=== PATIENT | male | born 1975 | race Caucasian/White ===

== ENCOUNTER 2024-03-03 07:07 | Day surgery (SDC) | payer OTHER, SELFPAY ==
[2024-03-03] VITALS (27 sets, daily range): BP systolic 81–142; BP diastolic 41–108; PULSE 83–131; RESP 14–20; TEMP 36.3–38.1; O2SAT 94–100; BMI 33.9
[2024-03-03] MEDS: MIDAZOLAM (PO) 5 MG/2.5 ML SYRUP 15 MG PO (07:30)
--- NOTE | 2024-03-03 08:26 | SUR.PREOP ---
Pt is accompanied by Mom-Jovita, sister, Kayla (worker in assisted), and Nichole costume design teacher. Per Mom's request and after anesthesia consult, [facility] tolerated without difficulty. Pt was assisted x4 nursing staff onto cart in [facility]. Preop Questionnaire answered by Jovita. OR staff to perform nasal swab.
--- NOTE | 2024-03-03 08:30 | XR_ITS ---
Patient: GUILHERME DUFFY Facility:?[facility] Patient ID:?[id number] Site Patient ID:?[id number]. Site :?1975 Study:?XRay-Hip Left w/ c-arm-03/03/2024 11:38:21 AM Ordering Physician:?Praveen Julio Final Report: Indication: Hip replacement surgery Technique: AP hip fluoroscopic images. Fluoroscopy time 84.1 seconds. Findings/Impression: Hardware from a left total hip arthroplasty is in satisfactory position. Note that the images are mislabeled ?right?. Dictated by Myke Prieto MD @ 03/04/2024 1:23:34 PM Signed by:?Myke Prieto MD @03/04/2024 1:23:34 PM (Electronic Signature)
[2024-03-03] MEDS: LACTATED RINGERS 1000 ML 1,000 ML 100 ML IV ×3 (09:05→11:01)
[2024-03-03] MEDS: CEFAZOLIN 1 GM inj 3 GM IVP (09:20)
[2024-03-03] MEDS: TRANEXAMIC ACID 100 MG/ML INJ 1000 MG IV (09:20)
--- NOTE | 2024-03-03 10:39 | P.NB_ITS ---
Nerve Block Nerve Block Time Seen by Provider: 08:30 Date Seen: 03/03/24 Type of block requested by surgeon for post-operative analgesia: NANCY/LFCN Side: left Time out performed: Yes Verification of patient name: Yes Verification of date of : Yes Site marking: site marked Name of person performing procedure: frank Continuous monitoring Was continuous monitoring of O2 sat, B/P, service order clerk, recorded every 15 minutes?: Yes Procedure Checklist: sterile prep, needles and gloves Ultrasound guided. Images saved: Yes Medications given in 5ml increments after negative aspiration: Ropivicaine %: 0.5 mL: 30 Needle gauge: 20 Decadron (mg): 10 Precedex (mcg): 25 Patient tolerated procedure well: Yes Block Charges Block Charge (with Pro Fee): Other Periph Nerve Block Use of Ultrasound Machine for Block: Yes- US Guidance/pain block
--- NOTE | 2024-03-03 11:35 | XR_ITS ---
Patient: GUILHERME DUFFY Facility:?[facility] Patient ID:?[id number] Site Patient ID:?[id number]. Site :?1975 Study:?XRay-Hip Left Post op-03/03/2024 1:01:47 PM Ordering Physician:?Praveen Julio Final Report: INDICATION: Postop left SANDRA. TECHNIQUE: AP pelvis and lateral left hip. FINDINGS: There is a left SANDRA. Components appear well seated. Adjacent postop soft tissue air. Also noted is a right SANDRA. Dictated by Bart Miranda MD @ 03/04/2024 9:42:33 AM Signed by:?Bart Miranda MD @03/04/2024 9:42:33 AM (Electronic Signature)
--- NOTE | 2024-03-03 11:37 | PM.ORPRC ---
Procedure Note Date of procedure: 03/03/24 Procedure: PREOPERATIVE DIAGNOSIS: Left hip osteoarthritis POSTOPERATIVE DIAGNOSIS: Left hip osteoarthritis NAME OF OPERATION: Left total hip arthroplasty SURGEON: Praveen Julio MD BEVEL POLISHER: Randi Caldwell PA-C, NI Dan IMPLANTS: 1. [employer] [place] # 54 sector ingrowth cup 2. 36 x 54 +4 neutral polyethylene 3. Actis # 3 high offset collared ingrowth stem 4. 36 + 5 ceramic femoral head ANESTHESIA: General ESTIMATED BLOOD LOSS: 1000 cc COMPLICATIONS: None SPECIMENS: None DRAINS: None PREOPERATIVE ANTIBIOTICS: Ancef 2 grams INDICATIONS: The patient is a 48-year-old with a longstanding history of severe, unrelenting left hip pain secondary to end-stage left hip osteoarthritis. Despite appropriate nonoperative management, including activity modification, use of an assist device, anti-inflammatories, [id number] pain medication, physical therapy and injections, they continue to have pain and disability. Operative intervention was offered. The risks, benefits and expected outcomes were discussed in detail. These included but were not limited to: Infection, bleeding, injury to blood vessel or nerve, venous thromboembolism. All questions were answered to their satisfaction. Use of an assistant director of admissions was necessary throughout the case for patient positioning and safety, soft tissue retraction and closure. A modifier 22 should be added to this case. The patient's weight of 110 kg with a BMI of 34 made the exposure difficult. Additionally, the femoral anatomy was unique with significant metaphyseal diaphyseal mismatch which made getting fixation of the femoral component a challenge. These factors more than doubled the time typically required to complete this case. PROCEDURE: The patient was placed supine on the [place] table. General anesthesia was administered. The assistant director of admissions made sure the patient was properly positioned. The left hip was prepped and draped in the usual sterile fashion. The image intensifier was brought in for a perfect AP pelvis and a perfect double tear drop AP view of each hip which were used for intraoperative templating with our fluoroscopic guide. An oblique incision was made 3 cm distal and 3 cm lateral to the anterior superior iliac spine. The assistant director of admissions retracted the soft tissues to protect them. Subcutaneous dissection was taken with electrocautery to the superficial fascia. The fascia was divided in line with the incision. Blunt dissection was carried medially to the tensor fascia jayesh and sartorius interval. Deep dissection was carried with electrocautery. The circumflex vessels were cauterized and divided. The capsule was exposed and then divided in a T-fashion, tagged with #1 Ethibond sutures. Retractors were placed in the joint, held by the assistant director of admissions. The corkscrew was placed in the femoral head. The neck cut was made in the subcapital region. We made a second neck cut more distal. The napkin ring of bone was removed. The femoral head was removed intact. Acetabular retractors were placed, held by the assistant director of admissions. The labrum was sharply debrided. The capsule was released. The 43 mm reamer was used to the true medial wall. We then enlarged in 2 mm increments using the image intensifier for our reamer placement. We impacted the cup which had excellent purchase. We placed the polyethylene. Attention was then turned to the proximal femur. The limb was placed in 140 degrees of external rotation, maximum extension and adduction. A significant amount of time was spent releasing the capsule to allow us to deliver the femur into the wound and complete the femoral side safely. Retractors were held by the assistant director of admissions throughout the femoral preparation. The gill box tender and canal finder were used. Broaches were used to a stable size. The calcar reamer was used. Trial components were placed. The hip was reduced and was found to be stable with appropriate soft tissue tension. Length and offset had been nicely restored using the image intensifier and our fluoroscopic guide. Trial components were removed. The stem was impacted. We placed the femoral head. Again, the hip was reduced and was found to be stable with appropriate soft tissue tension. Length and offset had been nicely restored. The assistant director of admissions did a three minute dilute Betadine solution soak. The assistant director of admissions irrigated the wound with 3 liters of normal saline via pulse lavage. The assistant director of admissions repaired the anterior capsule with a #1 Vicryl and our previously placed Ethibond sutures. The assistant director of admissions closed the fascia over the tensor fascia jayesh with a #1 PDO Stratafix, subcutaneous tissues with 2-0 Vicryl, skin with a running 3-0 Stratafix and glue. A dry dressing was applied by the assistant director of admissions. Sponge and needle counts were correct x 2. The patient tolerated the procedure well; there were no apparent complications. They were awakened and extubated in the operating room, sent to the Post-Anesthesia Care Unit in satisfactory condition. PLAN: 1. The patient will be mobilized with physical therapy, weight-bearing as tolerates 2. Xarelto x 5 days then aspirin x 30 days will be used for DVT prophylaxis 3. The patient will be discharged once medically appropriate
--- NOTE | 2024-03-03 12:40 | W.ANESCHARGE ---
Anesthesia Charges Start Date/Time Anesthesia Start Date: 03/03/24 Anesthesia Start Time: 08:55 Stop Date/Time Anesthesia Stop Date: 03/03/24 Anesthesia Stop Time: 12:38
[2024-03-03 12:44] LABS: Hemoglobin* 10.1 gm/dL (13.5-17.5)
--- NOTE | 2024-03-03 13:10 | SUR.PHASEI ---
consulted with CANDELARIO Tran regarding patient's bp, stated to run fluids and no medication intervention needed if map is above 60mmHg
--- NOTE | 2024-03-03 13:50 | P.IMCN_ITS ---
Date of Consult Patient: Other Consult date: 03/03/24 Requesting Physician: Orthopedics Primary Care Provider: Not a Local Provider Consult Narrative Narrative: Ty Maldonado is a 48 year old male seen in consultation for management of medical problems following hip surgery. He underwent left total hip arthroplasty performed by Dr. Julio today. Procedure was associated with 1000 mL blood loss and postop hypotension. He received 3 L of fluid postoperatively for his hypotension. His hemoglobin was 10.1 postoperatively. He has also been chilled and being warmed with a Kianna Hugger blanket. He currently reports no concerns other than feeling cold. He is having shaking chills. He denies having any pain. Preop evaluation did not identify any significant medical concerns. Review of Systems Narrative: No recent illness or injury. No new health concerns. [facility] Medical History (Updated 03/03/24 @ 14:29 by Alberto Guillen MD) Delay of cognitive development ?F81.9 - Developmental disorder of scholastic skills, unspecified (ICD-10) Congenital deafness ?H90.5 - Unspecified sensorineural hearing loss (ICD-10) Body mass index (BMI) of 38.0 to 38.9 in adult ?Z68.38 - Body mass index [BMI] 38.0-38.9, adult (ICD-10) Anxiety about health ?R45.89 - Other symptoms and signs involving emotional state (ICD-10) Osteoarthritis of left hip ?M16.12 - Unilateral primary osteoarthritis, left hip (ICD-10) Surgical History (Updated 03/03/24 @ 14:28 by Alberto Guillen MD) S/P total left hip arthroplasty ?Z96.642 - Presence of left artificial hip joint (ICD-10) History of cataract extraction ?Z98.49 - Cataract extraction status, unspecified eye (ICD-10) History of total right hip arthroplasty (03/07/21) ?Z96.641 - Presence of right artificial hip joint (ICD-10) Social History (Updated 03/03/24 @ 14:23 by Alberto Guillen MD) Narrative: He lives at [facility]. Communicates with the Singaporean sign language. He does not smoke. He does not drink alcohol. Problems where you live: no known problems Smoking Status: Never smoker Do you use any of these nicotine containing products: None Second hand tobacco smoke exposure: No How often do you have a drink containing alcohol: never AUDIT-C Alcohol total score: 0 Non-prescribed substance use: denies use Caffeine: No Meds Home Medications and Allergies Home Medications Medication Instructions Recorded Confirmed Type acetaminophen 500 mg tablet 500 mg PO Q6H PRN 03/03/24 03/03/24 History ibuprofen 200 mg tablet (Advil) 400 mg PO Q6H PRN 03/03/24 03/03/24 History Allergies Allergy/AdvReac Type Severity Reaction Status Date / Time No Known Drug Allergies Allergy Unverified 11/11/23 13:11 Exam Narrative: Exam Narrative: Appears chilled with shivering. He is otherwise alert. Communicating well through sign language. Eyes normal. Oropharynx shows small airway. Neck is supple without mass or adenopathy. Respirations are clear to auscultation. Cardiovascular: S1, S2, regular rate and rhythm. Abdomen: Bowel sounds active. Abdomen is soft without tenderness or mass. Left hip incision is clean and dry without erythema or bruising or apparent drainage on the dressing. Distally he has trace edema. Feet are somewhat cool to touch. Intact pedal pulses. Moves right lower extremity well. Less movement in left foot and ankle though no obvious motor deficit Const: Vital Signs, click to edit/add: Vital Signs - 24 hr 03/03/24 08:25 03/03/24 12:35 03/03/24 12:40 Temperature 97.6 F Pulse Rate 108 H 85 84 Respiratory Rate 16 14 14 Blood Pressure 122/75 97/59 L 98/60 Pulse Oximetry 99 94 95 Oxygen Delivery Me thod Room Air Room Air Room Air 03/03/24 12:45 03/03/24 12:50 03/03/24 12:55 Temperature Pulse Rate 85 83 84 Respiratory Rate 16 16 16 Blood Pressure 101/55 L 93/58 L 94/71 Pulse Oximetry 97 95 97 Oxygen Delivery Me thod Room Air Room Air Room Air 03/03/24 13:00 03/03/24 13:05 03/03/24 13:10 Temperature Pulse Rate 83 87 84 Respiratory Rate 16 16 16 Blood Pressure 89/41 L 99/64 98/61 Pulse Oximetry 95 97 96 Oxygen Delivery Me thod Room Air Room Air Room Air 03/03/24 13:15 03/03/24 13:21 03/03/24 13:25 Temperature 97.4 F L 97.6 F Pulse Rate 96 95 94 Respiratory Rate 16 16 16 Blood Pressure 104/58 L 113/71 99/61 Pulse Oximetry 98 97 98 Oxygen Delivery Me thod Room Air Room Air Room Air Documenting provider has reviewed patient's vital signs: yes Labs Labs: Short CBC 03/03/24 Range/Units 12:23 Hgb 10.1 L (13.5-17.5) gm/dL Assessment and Plan Assessment and plan (1) S/P total left hip arthroplasty: Problem comment: Dr. Julio. Postop hypotension due to excess blood-loss Status: Acute (2) Body mass index (BMI) of 38.0 to 38.9 in adult: Status: Acute (3) Anxiety about health: Problem comment: Had significant anxiety after right hip surgery 3 years ago Status: Acute (4) Congenital deafness: Problem comment: media relations specialist Status: Acute (5) Hypothermia following anesthesia: Problem comment: Kianna Hugger Status: Acute (6) Acute postoperative anemia due to greater than expected blood loss: Problem comment: Postop hemoglobin 10.1. Continue to monitor. Status: Acute (7) Hypotension: Problem comment: Postop hypotension likely due to blood loss. Responding fluid resuscitation Status: Acute Plan Patient is admitted for postoperative management after left total hip arthroplasty. Responding well to fluid resuscitation for operative blood loss and hypotension. Responding well to warming with Kianna Hugger blanket. Anticipate for routine postoperative care. Attention to anxiety patient may have about hospital care. Total Time Spent Total Time Spent: Total time spent today is 50 minutes, 30 minutes in coordination of care discussing with patient, mother and other providers ongoing management of blood loss hypotension and hypothermia.
[2024-03-03] MEDS: 0.9 % SODIUM CHLORIDE 1000 ml 1,000 ML 500 ML IV (14:15)
--- NOTE | 2024-03-03 15:29 | PC.NURSE ---
Nursing Care Hours: [id number] Pt arrived from PACU alert and oriented, communicating with parts interpreter for ALS. No c/o pain or nausea. Report from PACU nurse that EBL about 1000ml, BP hypotensive and pt cold in recovery. On M/S, started bearhugger for extreme shivers, started bolus infusion of warmed sodium chloride per hospitalist. Initial BP inaccurate d/t artifact. Once pt calmed, BP reading 98/63, pt reported feeling dizzy and lightheaded, so HOB lowered to supine. Capillary refill initially was >3 seconds but once warmed up and infusions running, decreased to 3 seconds. Bandage CDI. Reports feeling loan underwriter touch legs and is able to pump feet. Temporal temp increased from 97.5 to 100.6, so bearhugger turned off. Pt tolerating ice chips. Pt was asking about going home with mom and when loan underwriter explained that it would be tomorrow, pt began crying, but easily consoled. Mom in room, clipped pt toenails of right foot. Pt mom reported she will follow up with corset maker for L foot d/t toenails too long and are curling over to plantar side of toe and digging into skin. No open areas noted.
[2024-03-03] MEDS: LACTATED RINGERS 1000 ML 1,000 ML 75 ML IV ×2 (16:03→23:38)
[2024-03-03] MEDS: ACETAMINOPHEN 500 MG TABLET 1000 MG PO (16:56)
[2024-03-03] MEDS: CEFAZOLIN 2 GM in 0.9 % SODIUM CHLORIDE Mini-bag 100 ML IVPB (16:57)
[2024-03-03] MEDS: LACTATED RINGERS 1000 ML 1,000 ML IV (17:49)
[2024-03-03] MEDS: OXYCODONE 5 MG TABLET PO (19:22)
--- NOTE | 2024-03-03 20:16 | P.IMPN_ITS ---
Progress Note: A&P Assessment and plan (1) Hypotension: Problem details: Postop hypotension likely due to blood loss. Responds to fluid resuscitation. Has gotten over 3 liters and is tachycardic and mildly hypotensive when boluses finish. Will check Hgb. Will give versed for sedation due to anxiety, refusal (patient is not his own decision maker and his mother/POA would like us to get the Hgb and is agreeable to using versed for blood draw). Type and cross is pending. Status: Acute (2) Acute postoperative anemia due to greater than expected blood loss: Problem details: Postop hemoglobin 10.1. Continue to monitor. Status: Acute (3) Hypothermia following anesthesia: Problem details: Kianna Chilel Status: Resolved (4) S/P total left hip arthroplasty: Problem details: Dr. Julio. Postop hypotension due to excess blood-loss Status: Acute (5) Osteoarthritis of left hip: Problem details: [place] grade 3 left hip osteoarthritis Status: Acute (6) Anxiety about health: Problem details: Had significant anxiety after right hip surgery 3 years ago Status: Acute (7) Delay of cognitive development: Status: Acute (8) Congenital deafness: Problem details: resources representative Status: Acute Time Spent With Patient Total time spent: Today I spent 35 minutes rounding on the patient. Greater than 50% included discussing care with the team, reviewing data, updating and managing the care plan. Subjective Time Seen by Provider: 19:45 Date Seen: 03/03/24 Interval history: Ty is a 48-year-old male with developmental delay who underwent an elective left total hip arthroplasty today by Dr. Julio and it was noted that there was a 1000 mL blood loss. Postoperatively he has had adequate urine output, but heart rate has been in the 110s to 120s and blood pressures are soft. Despite getting several IV fluid boluses, his heart rate and soft blood pressures have not changed. I ordered a hemoglobin however the patient is refusing any needles. His mother, Jovita, is in the room with him and tells me that this has been problem his whole life and he has to be sedated with Versed in order for a blood draw to be done. She notes that they gave him oral Versed prior to getting an IV for surgery this morning. We discussed either continuing giving fluid boluses without obtaining a hemoglobin verses giving Versed and doing a blood draw to obtain the hemoglobin. I also discussed blood transfusion with her. She wanted us to get the hemoglobin and was agreeable with giving Versed to do so. She is agreeable to blood transfusion if that should be necessary as well. Exam Narrative: Exam Narrative: General: No acute distress. Awake, alert, oriented. Smiling, talkative and interactive. Developmental delay noted. Mild pallor. No jaundice. Oropharynx: Clear. Mucous membranes moist. Cardiovascular: Tachycardic, regular. No murmurs, gallops, or rubs. Respiratory: Clear to auscultation bilaterally. No wheezes or crackles. Abdomen: Bowel sounds present. Soft, nondistended, nontender. Extremities: Left hip bandage is clean, dry, intact. There is no ecchymosis. He would not let me touch the area. There is candidiasis of the left groin. No pedal edema. Const: Vital Signs, click to edit/add: Vital Signs - 24 hr 03/03/24 08:25 03/03/24 12:35 03/03/24 12:40 Temperature 97.6 F Pulse Rate 108 H 85 84 Respiratory Rate 16 14 14 Blood Pressure 122/75 97/59 L 98/60 Pulse Oximetry 99 94 95 Oxygen Delivery Me thod Room Air Room Air Room Air 03/03/24 12:45 03/03/24 12:50 03/03/24 12:55 Temperature Pulse Rate 85 83 84 Respiratory Rate 16 16 16 Blood Pressure 101/55 L 93/58 L 94/71 Pulse Oximetry 97 95 97 Oxygen Delivery Me thod Room Air Room Air Room Air 03/03/24 13:00 03/03/24 13:05 03/03/24 13:10 Temperature Pulse Rate 83 87 84 Respiratory Rate 16 16 16 Blood Pressure 89/41 L 99/64 98/61 Pulse Oximetry 95 97 96 Oxygen Delivery Me thod Room Air Room Air Room Air 03/03/24 13:15 03/03/24 13:21 03/03/24 13:25 Temperature 97.4 F L 97.6 F Pulse Rate 96 95 94 Respiratory Rate 16 16 16 Blood Pressure 104/58 L 113/71 99/61 Pulse Oximetry 98 97 98 Oxygen Delivery Me thod Room Air Room Air Room Air 03/03/24 13:45 03/03/24 14:00 03/03/24 14:04 Temperature 98.9 F 97.5 F L Pulse Rate 98 104 H 109 H Respiratory Rate 16 16 Blood Pressure 140/101 H 142/108 H Pulse Oximetry 99 98 98 Oxygen Delivery Tx thod Room Air Room Air Room Air 03/03/24 14:30 03/03/24 15:30 03/03/24 16:29 Temperature 100.6 F H 99.1 F 99.6 F Pulse Rate 90 113 H 117 H Respiratory Rate 16 20 18 Blood Pressure 98/63 95/56 L 112/99 H Pulse Oximetry 96 98 100 Oxygen Delivery Tx thod Room Air Room Air Room Air 03/03/24 17:30 03/03/24 18:30 Temperature 99.4 F 99.0 F Pulse Rate 123 H 131 H Respiratory Rate 20 20 Blood Pressure 106/56 L 97/69 Pulse Oximetry 96 96 Oxygen Delivery Tx thod Room Air Room Air Labs Labs: Laboratory Results - last 24 hr 03/03/24 03/03/24 09:02 12:23 Hgb 10.1 L Blood Type B Positive Antibody Screen NEGATIVE
[2024-03-03] MEDS: SENNOSIDES 1 TAB TABLET 2 TAB PO (20:45)
[2024-03-03] MEDS: MIDAZOLAM HCL 1 MG/ML inj 2 MG IVP ×2 (21:35→22:37)
[2024-03-03] MEDS: LACTATED RINGERS 500 ML 500 ML IV (22:36)
[2024-03-03] MEDS: KETAMINE HCL 100 MG/ML inj 25 MG IVP (23:36)
[2024-03-03] MEDS: KETAMINE HCL 100 MG/ML inj 12.5 MG IVP (23:37)
[2024-03-03 23:38] LABS: Hemoglobin* 8.7 gm/dL (13.5-17.5)
[2024-03-04] VITALS (9 sets, daily range): BP systolic 91–122; BP diastolic 37–67; PULSE 99–120; RESP 18–22; TEMP 37.5–37.7; O2SAT 96–97
[2024-03-04] MEDS: ACETAMINOPHEN 500 MG TABLET 1000 MG PO ×2 (00:38→11:27)
[2024-03-04] MEDS: CEFAZOLIN 2 GM in 0.9 % SODIUM CHLORIDE Mini-bag 100 ML IVPB (00:39)
--- NOTE | 2024-03-04 01:10 | PC.NURSE ---
End of Shift: Patient pleasant and cooperative. records clerk used in person and on Ipad. Dressing to left hip C/D/I. CMS intact. C/o pain in left hip and PRN Oxycodone given x1. Tolerating regular diet with no nausea.Using urianl. BP 80-110/50-60s. Heart rate increased to 120-130. Pt c/o some lightheadedness. Updated MD. EKG and bolus given as ordered. Order for lab to draw hemoglobin. Education on lab draw provided to patient with Ipad tenter frame back tender and with mother present. Patient refused. Several attempts made to educate on importance and patient continued to refuse. Updated MD and patient's mother, Midazolam ordered. Attempted again to draw hemoglobin after administration and patient refused. Second dose of Midazolam given as ordered and still unable to complete blood draw. MD aware.
--- NOTE | 2024-03-04 06:48 | PC.NURSE ---
End of shift note: pt calm and cooperative with cares. Lab draw obtained post administration of versed and ketamine. Hgb down from 10.1 to 8.7. MD updated. 1unit PRBC administered without complication. LR @75ml to left forearm. pt uses call light appropriately. pt has not been post op d/t increased agitation and medication use. active ice to left hip. dressing c/d/i. ipad furrier apprentice used.
--- NOTE | 2024-03-04 08:34 | PM.ORPN ---
Subjective Subjective Time Seen by Provider: 07:15 Date Seen: 03/04/24 Principal diagnosis: Status post left hip replacement Interval history: Ty is comfortable this morning. He is looking forward to going home. He had a unit of blood postoperatively. He states he is feeling good and hungry for breakfast. Ortho Exam Narrative Exam Narrative: Alert and oriented x3. Patient is in no acute distress. Converses without labored breathing. Hearing is grossly intact. Ambulates with a walker. Examination of the left hip shows the dressing is intact. No erythema or warmth or sign of infection. Mild soft tissue edema. Bilateral calves are soft and nontender. CMS intact left lower extremity. Const Vital Signs, click to edit/add: Vital Signs - 24 hr 03/03/24 12:35 03/03/24 12:40 03/03/24 12:45 Temperature 97.6 F Pulse Rate 85 84 85 Pulse Rate [Left Pulse Oximeter] Respiratory Rate 14 14 16 Blood Pressure 97/59 L 98/60 101/55 L Blood Pressure [Right Arm] Pulse Oximetry 94 95 97 Oxygen Delivery Method Room Air Room Air Room Air 03/03/24 12:50 03/03/24 12:55 03/03/24 13:00 Temperature Pulse Rate 83 84 83 Pulse Rate [Left Pulse Oximeter] Respiratory Rate 16 16 16 Blood Pressure 93/58 L 94/71 89/41 L Blood Pressure [Right Arm] Pulse Oximetry 95 97 95 Oxygen Delivery Method Room Air Room Air Room Air 03/03/24 13:05 03/03/24 13:10 03/03/24 13:15 Temperature 97.4 F L Pulse Rate 87 84 96 Pulse Rate [Left Pulse Oximeter] Respiratory Rate 16 16 16 Blood Pressure 99/64 98/61 104/58 L Blood Pressure [Right Arm] Pulse Oximetry 97 96 98 Oxygen Delivery Method Room Air Room Air Room Air 03/03/24 13:21 03/03/24 13:25 03/03/24 13:45 Temperature 97.6 F 98.9 F Pulse Rate 95 94 98 Pulse Rate [Left Pulse Oximeter] Respiratory Rate 16 16 16 Blood Pressure 113/71 99/61 140/101 H Blood Pressure [Right Arm] Pulse Oximetry 97 98 99 Oxygen Delivery Method Room Air Room Air Room Air 03/03/24 14:00 03/03/24 14:04 04/02/24 14:30 Temperature 97.5 F L 100.6 F H Pulse Rate 104 H 109 H 90 Pulse Rate [Left Pulse Oximeter] Respiratory Rate 16 16 Blood Pressure 142/108 H 98/63 Blood Pressure [Right Arm] Pulse Oximetry 98 98 96 Oxygen Delivery Method Room Air Room Air Room Air 03/03/24 15:30 03/03/24 16:29 03/03/24 17:30 Temperature 99.1 F 99.6 F 99.4 F Pulse Rate 113 H 117 H 123 H Pulse Rate [Left Pulse Oximeter] Respiratory Rate 20 18 20 Blood Pressure 95/56 L 112/99 H 106/56 L Blood Pressure [Right Arm] Pulse Oximetry 98 100 96 Oxygen Delivery Method Room Air Room Air Room Air 03/03/24 18:30 03/03/24 19:30 03/03/24 21:00 Temperature 99.0 F 98.9 F Pulse Rate 131 H 126 H Pulse Rate [Left Pulse Oximeter] 123 H Respiratory Rate 20 18 Blood Pressure 97/69 100/68 Blood Pressure [Right Arm] 102/54 L Pulse Oximetry 96 97 Oxygen Delivery Method Room Air Room Air 03/03/24 21:30 03/03/24 22:09 03/03/24 22:35 Temperature Pulse Rate Pulse Rate [Left Pulse Oximeter] 123 H 113 H 107 H Respiratory Rate Blood Pressure Blood Pressure [Right Arm] 89/61 L 95/55 L 94/62 Pulse Oximetry Oxygen Delivery Method 03/03/24 22:45 03/03/24 23:00 03/04/24 00:15 Temperature Pulse Rate Pulse Rate [Left Pulse Oximeter] 102 H 109 H Respiratory Rate 22 Blood Pressure Blood Pressure [Right Arm] 91/61 81/65 L Pulse Oximetry Oxygen Delivery Method 03/04/24 02:48 03/04/24 03:10 03/04/24 03:55 Temperature 99.7 F H 99.7 F H 99.9 F H Pulse Rate 105 H 99 106 H Pulse Rate [Left Pulse Oximeter] Respiratory Rate 18 18 20 Blood Pressure 110/61 91/58 L 98/55 L Blood Pressure [Right Arm] Pulse Oximetry 97 96 96 Oxygen Delivery Method 03/04/24 04:55 03/04/24 05:25 03/04/24 07:49 Temperature 99.7 F H 99.5 F 99.9 F H Pulse Rate 109 H 107 H Pulse Rate [Left Pulse Oximeter] 110 H Respiratory Rate 18 18 18 Blood Pressure 98/60 97/67 Blood Pressure [Right Arm] 122/37 L Pulse Oximetry 97 97 96 Oxygen Delivery Method Room Air Assessment and Plan Assessment and plan (1) Status post left hip replacement: Problem details: 03/03/2024Sumanth Status: Acute Assessment and Plan: Plan for discharge is today to home if they meet discharge criteria. DVT prophylaxis includes Xarelto 10 mg daily for total of 5 days, then aspirin 81 mg twice daily for 30 days, Albino stockings x1 month may remove for 1 hr per day, frequent ambulation Remove dressing 1 week. Observe wound and phone Orthopedics with any questions or concerns Use Ice on operative hip unrestricted. Return to clinic in 1 week with PA for a wound check Return to clinic in 6 weeks with surgeon Minimize narcotic use. Wean off and discontinue soon as possible. Activities as tolerated. No strenuous activity. Attend outpt PT
[2024-03-04] MEDS: RIVAROXABAN 10 MG TABLET PO (08:46)
[2024-03-04] MEDS: OXYCODONE 5 MG TABLET PO ×2 (08:46→13:16)
--- NOTE | 2024-03-04 13:56 | PM.DS1 ---
DS: Providers Provider Date Seen: 03/04/24 Primary care physician: Not a Local Provider Attending Physician on discharge: Praveen Julio MD Date of Discharge: 03/04/24 DS: Diagnosis Discharge Diagnosis (1) Status post left hip replacement: Status: Acute Problem details: 03/03/2024, Sumanth (2) Hypotension: Status: Acute Problem details: Postop hypotension likely due to blood loss. Responds to fluid resuscitation. Has gotten over 4 liters and is tachycardic and mildly hypotensive when boluses finish. Will check Hgb. Will give versed for sedation due to anxiety, refusal (patient is not his own decision maker and his mother/POA would like us to get the Hgb and is agreeable to using versed for blood draw). Transfuse 1 unit during the night. Blood pressures this morning in the 90s over 60s (3) Acute postoperative anemia due to greater than expected blood loss: Status: Acute Problem details: Postop hemoglobin 10.1. Continue to monitor. Late last night hemoglobin was 8.7. Transfused 1 unit packed red blood cells without complications (4) Hypothermia following anesthesia: Status: Resolved Problem details: Kianna Chilel. Resolved (5) Anxiety about health: Status: Acute Problem details: Had significant anxiety after right hip surgery 3 years ago. Required sedation for blood draw last night. (6) Tachycardia: Status: Acute Problem details: This morning resting pulse was 120. By this afternoon on the day of discharge his resting pulse was 108-109. He reports having no symptoms of dyspnea, chest pain or palpitations or lightheadedness. DS: Summary Hospital Course Hospital Course: Ty Maldonado is a 48 year old male seen in consultation for management of medical problems following hip surgery. He underwent left total hip arthroplasty performed by Dr. Julio today. Procedure was associated with 1000 mL blood loss and postop hypotension. He received 3 L of fluid postoperatively for his hypotension. His hemoglobin was 10.1 postoperatively. He has also been chilled and being warmed with a Kianna Hugger blanket. He currently reports no concerns other than feeling cold. He is having shaking chills. He denies having any pain. Preop evaluation did not identify any significant medical concerns. Last evening: Postoperatively he has had adequate urine output, but heart rate has been in the 110s to 120s and blood pressures are soft. Despite getting several IV fluid boluses, his heart rate and soft blood pressures have not changed. I ordered a hemoglobin however the patient is refusing any needles. His mother, Jovita, is in the room with him and tells me that this has been problem his whole life and he has to be sedated with Versed in order for a blood draw to be done. She notes that they gave him oral Versed prior to getting an IV for surgery this morning. We discussed either continuing giving fluid boluses without obtaining a hemoglobin verses giving Versed and doing a blood draw to obtain the hemoglobin. I also discussed blood transfusion with her. She wanted us to get the hemoglobin and was agreeable with giving Versed to do so. Transfuse 1 unit packed red cells after hemoglobin of 8.7 last night. Today blood pressures improved to 90s over 60s. Initially tachycardia with poor resting pulse around 120. Now improved to 109. Patient is adamant about going home with his mother. He reports having no symptoms. Time Spent with Patient Time attestation: Total time spent providing and/or coordinating discharge services: 40 Time spent: Greater than 30 minutes Exam Narrative: Exam Narrative: He is alert, pleasant and in no distress. Respirations are clear to auscultation. Breathing is unlabored. Cardiovascular: S1, S2, regular tachycardia. Abdomen is soft without tenderness. Hip area without marked swelling bruising redness or deformity. He has intact pulses and sensation distally. Extremities are warm to touch. He moves his feet and ankles well. Const: Vital Signs, click to edit/add: Vital Signs - 24 hr 03/03/24 14:00 03/03/24 14:04 03/03/24 14:30 Temperature 97.5 F L 100.6 F H Pulse Rate 104 H 109 H 90 Pulse Rate [Left P ulse Oximeter] Respiratory Rate 16 16 Blood Pressure 142/108 H 98/63 Blood Pressure [Ri ght Arm] Pulse Oximetry 98 98 96 Oxygen Delivery Me thod Room Air Room Air Room Air 03/03/24 15:30 03/03/24 16:29 03/03/24 17:30 Temperature 99.1 F 99.6 F 99.4 F Pulse Rate 113 H 117 H 123 H Pulse Rate [Left P ulse Oximeter] Respiratory Rate 20 18 20 Blood Pressure 95/56 L 112/99 H 106/56 L Blood Pressure [Ri ght Arm] Pulse Oximetry 98 100 96 Oxygen Delivery Me thod Room Air Room Air Room Air 03/03/24 18:30 03/03/24 19:30 03/03/24 21:00 Temperature 99.0 F 98.9 F Pulse Rate 131 H 126 H Pulse Rate [Left P ulse Oximeter] 123 H Respiratory Rate 20 18 Blood Pressure 97/69 100/68 Blood Pressure [Ri ght Arm] 102/54 L Pulse Oximetry 96 97 Oxygen Delivery Me thod Room Air Room Air 03/03/24 21:30 03/03/24 22:09 03/03/24 22:35 Temperature Pulse Rate Pulse Rate [Left P ulse Oximeter] 123 H 113 H 107 H Respiratory Rate Blood Pressure Blood Pressure [Ri ght Arm] 89/61 L 95/55 L 94/62 Pulse Oximetry Oxygen Delivery Me thod 03/03/24 22:45 03/03/24 23:00 03/04/24 00:15 Temperature Pulse Rate Pulse Rate [Left P ulse Oximeter] 102 H 109 H Respiratory Rate 22 Blood Pressure Blood Pressure [Ri ght Arm] 91/61 81/65 L Pulse Oximetry Oxygen Delivery Me thod 03/04/24 02:48 03/04/24 03:10 03/04/24 03:55 Temperature 99.7 F H 99.7 F H 99.9 F H Pulse Rate 105 H 99 106 H Pulse Rate [Left P ulse Oximeter] Respiratory Rate 18 18 20 Blood Pressure 110/61 91/58 L 98/55 L Blood Pressure [Ri ght Arm] Pulse Oximetry 97 96 96 Oxygen Delivery Me thod 03/04/24 04:55 03/04/24 05:25 03/04/24 07:30 Temperature 99.7 F H 99.5 F Pulse Rate 109 H 107 H Pulse Rate [Left P ulse Oximeter] 112 H Respiratory Rate 18 18 Blood Pressure 98/60 97/67 Blood Pressure [Ri ght Arm] Pulse Oximetry 97 97 Oxygen Delivery Me thod 03/04/24 07:49 03/04/24 11:00 Temperature 99.9 F H Pulse Rate Pulse Rate [Left P ulse Oximeter] 110 H 120 H Respiratory Rate 18 20 Blood Pressure Blood Pressure [Ri ght Arm] 122/37 L Pulse Oximetry 96 96 Oxygen Delivery Me thod Room Air Room Air Documenting provider has reviewed patient's vital signs: yes DS: Data Data Completed and Pending Labs on day of discharge: Labs from last 24 hours 03/03/24 03/03/24 23:30 09:02 Hgb 8.7 L Blood Type B Positive Antibody Screen NEGATIVE Crossmatch (AHG) See Detail Discharge Plan Discharge Disposition: Home w/ Parent or Adult Discharging Surgeon: Praveen Julio Follow-Up Appointment: One week Prescriptions: New sennosides [Senna Lax] 8.6 mg Tablet 17.2 mg PO BID PRN (Reason: constipation) Qty: 100 0RF aspirin [Aspirin Childrens] 81 mg tablet,chewable 81 mg PO BID 30 Days Qty: 60 0RF Xarelto 10 mg tablet 10 mg PO DAILY 4 Days Qty: 4 0RF Rx Instructions: Take this medication daily for 4 days, then Aspirin 81mg twice daily for 30 days oxycodone 5 mg Tablet 5 - 10 mg PO Q4-6H MDD 6 tabs per day PRN (Reason: Pain) Qty: 42 0RF Rx Instructions: Minimize. Discontinue as soon as possible Continued acetaminophen 500 mg tablet 500 mg PO Q6H PRN ibuprofen [Advil] 200 mg tablet 400 mg PO Q6H PRN Hold Instructions: Resume on 04/07/24. Activity Level: Activity as Tolerated and No strenuous activity Activity Detail: Change dressing weekly for 3 weeks and observe wound. Especially proximal wound. Notify Orthopedics with any questions or concerns. Dressing is waterproof. May shower. Change dressing if it becomes wet or soiled. Surgical glue covers the wound. Attend outpatient physical therapy if scheduled. Ice and elevate operative extremity without restriction. Swelling and bruising and pain will worsen within the first week. When swelling occurs, elevate the extremity above heart level several times a day and gently massage/pull soft tissue swelling toward hip. This allows gravity to assist in eliminating the swelling/edema. Wear compression stockings for 1 month post surgery to assist in preventing blood clots and to minimize swelling. May remove for 1 hour per day. Ambulate every hour throughout the day. Do not drive. Do not drink alcohol while taking narcotic pain medication. Notify Orthopedics with any questions or concerns. ([phone]) Discharge Diet: Regular Diet Detail: Proper human diet. Therapeutic carbohydrate restriction Patient Instructions: Acetaminophen (By mouth), Aspirin (By mouth), Oxycodone, Rapid Release (By mouth), Senna (By mouth) (Sen, Senna-lax), Anterior Hip Replacement (DC) Follow-up: Randi Rivera, LINNC [Physician Appliances Sample Maker] - 03/11/24 1:00 pm ([facility] for follow-up.) Provider,Not a Local [Primary Care Provider] - Discharge Orders: Discharge Order (Routine); Ordered 03/04/24 Ordered By: Randi Rivera Consulting provider completed their portion of the discharge: Yes
--- NOTE | 2024-03-04 14:42 | PC.NURSE ---
The patient discharged home with his mom this afternoon. IV was removed, and all discharge instructions were reviewed with his mom and given to his mom. The patient reports moderate pain in his L hip PRN oxycodone was given prior to discharge. Ambulating Ax1 w/ walker and GB. Mikala PATTON BSN
--- NOTE | 2024-03-04 16:09 | PC.SOCIAL ---
Social work: Met with pt's mother regarding d/c plan. Offered to provide control panel operator if pt wants to participate. Pulmonary Function Technologist was declined by mother. Mother states she is a retired nurse and will be caring for pt in her home until he recovered to a point that he can return to the longterm. Mother states she is pleased with the care provided and is ready for discharge to her home. mother states she has the equipment pt will need at home already and her only concern is to make sure he is discharged with the pain medication to keep him comfortable at home as pain has been an issue in the past for pt after surgery. Mother shared that she is pleased with the communication being provided with pt through the use of detective investigator both in-person and by IPad for pt's use and had no concerns regarding the control panel operator use. Mother is aware of how to contact oncology social work for additional resources if needed after discharge.
== END 2024-03-04 13:35 | disposition home or self-care (01) ==
LOC: OR 07:08 → MEDSURG 07:11
PROVIDERS: Family Medicine; Visit Provider Orthopaedic Surgery
PROC: (CPT 27130; principal; 2024-03-03 08:30)
DX: M16.12 Unilateral primary osteoarthritis, left hip (principal); G89.18 Other acute postprocedural pain; Z68.34 Body mass index [BMI] 34.0-34.9, adult; I95.81 Postprocedural hypotension; D62 Acute posthemorrhagic anemia; T88.51XA Hypothermia following anesthesia, initial encounter; R00.0 Tachycardia, unspecified; F41.9 Anxiety disorder, unspecified; R62.59 Other lack of expected normal physiological development in childhood; E66.9 Obesity, unspecified; H90.3 Sensorineural hearing loss, bilateral
CPT/HCPCS: 27130; 01214; 36415; 36430; 64450; 73501; 76942; 82565; 84132; 84295; 84520; 85018; 85025; 86850; 86900; 86901; 86922; 93005; 97110; 97116; 97162; 97165; 97530; 97535; A9270; C1776; J0690; J1100; J1170; J2250; J2405; J2704; J2795; J3010; J3490; J7030; J7120; P9016